=== PATIENT | female | born 1975 | race Two or more races ===

== ENCOUNTER 2025-04-01 07:43 | Emergency (ER) | payer OTHER ==
[~2025-04-01] VITALS: Ht 167.6 cm; Wt 81.6 kg
[~2025-04-01 07:43] MED LIST: ALDOMET250 MG PO; OXYC1TAB9 PO
[2025-04-01] MEDS ORDERED: LISINOPRIL10 MG PO (08:25)
[2025-04-01 09:01] LABS: BASO % 0.8 % (0.1-1.2); EOS # 0.37 (0.04-0.54); EOS % 5.8 % (0.7-7.0); LYMPH # 1.64 (1.18-3.74); LYMPH % 25.6 % (19.3-53.1); MEAN PLATELET VOLUME 9.40 fl (9.4-12.4); MONO # 0.61 (0.24-0.82); MONO % 9.5 % (4.7-12.5); NEUT # 3.72 (1.56-6.13); NEUT % 58.1 % (34.0-71.1); RED CELL DISTRIBUTION WIDTH 14.3 % (11.6-14.4)
[2025-04-01 09:32] LABS: BUN CREA RATIO 17.0 (7.0-25.0); CREATININE SERUM 0.54 mg/dL (0.55-1.02); GFR 119.5; GLUCOSE FASTING 92.0 mg/dL (65-100); OSMOLALITY SERUM 276.0 MOSM/KG (275-295)
[2025-04-01 10:12] LABS: URINE APPEARANCE Clear; URINE BILIRRUBIN Negative (NEGATIVE); URINE BLOOD Negative; URINE COLOR Yellow; URINE GLUCOSE Negative (NEGATIVE); URINE KETONE Negative (NEGATIVE); URINE LEUKOCYTE Negative; URINE NITRATE Negative; URINE PROTEIN Negative (NEGATIVE); URINE UROBILINOGEN 0.2 E.U./dl
[2025-04-01 10:16] LABS: URINE EPITHELIAL CELLS 6.2 uL (0.0-38.8); URINE RBC 4.3 uL (0.0-20.8)
[2025-04-01 10:50] LABS: URINE BACTERIA 0 uL (0.0-1933); URINE CAST 0.14 uL (0.0-1.40); URINE WBC 1.6 uL (0.0-23.2)
== END 2025-04-01 12:14 | disposition home or self-care (01) ==
LOC: ER 07:50
PROVIDERS: Emergency Medicine
DX: R30.0 Dysuria (principal); N83.201 Unspecified ovarian cyst, right side; N85.2 Hypertrophy of uterus; K44.9 Diaphragmatic hernia without obstruction or gangrene; Z88.0 Allergy status to penicillin